=== PATIENT | female | born 1940 | race Caucasian/White ===

== ENCOUNTER 2021-05-23 11:28 | Emergency (ER) | payer MEDICARE ==
[2021-05-24 08:03] LABS: SARS-CoV-2 PCR by NAA Not Detected (NotDetected)
== END 2021-05-23 13:10 | disposition home or self-care (01) ==
LOC: NAV ERS 11:28
DX: R05.9 Cough, unspecified (principal); J42 Unspecified chronic bronchitis; Z20.822 Contact with and (suspected) exposure to COVID-19
CPT/HCPCS: 99283; U0003; U0005